=== PATIENT | male | born 1975 | race Caucasian/White ===

== ENCOUNTER → 2017-07-14 | Outpatient (CLI) | payer BC ==
--- NOTE | 2017-07-14 11:51 | DIAGNOSTIC IMAGING REPORT ---
CHEST 2 VIEWS ROUTINE HISTORY: Short of breath. ASTHMA COMPARISON: None. FINDINGS: Right infrahilar increased markings. The left lung is clear. The heart is normal in size. No pleural effusions. No pneumothorax. Mild anterior wedging within the T11 vertebral body. IMPRESSION: 1. Right infrahilar increased markings which could represent atelectasis or a small developing pneumonia. One month chest x-ray follow up is recommended to ensure stability/resolution. 2. Mild anterior wedging within the T11 vertebral body. This is likely old. Electronically signed by: Faustino Awan M.D. 07/14/2017 11:49 AM Dictated Date/Time: 07/14/2017 11:43 AM
== END | disposition home or self-care (01) ==
LOC: C.RADBC 10:51
PROVIDERS: ATTEND Physician Assistant Medical
DX: J45.901 Unspecified asthma with (acute) exacerbation (principal)

== ENCOUNTER → 2017-08-26 | Outpatient (CLI) | payer OTHER ==
--- NOTE | 2017-08-26 14:53 | DIAGNOSTIC IMAGING REPORT ---
CHEST 2 VIEWS ROUTINE HISTORY: 42 years-old Male J18.9 [id number] follow-up study in a patient with pneumonia. COMPARISON: Chest radiographs 07/14/2017 TECHNIQUE: PA and lateral views of the chest FINDINGS: There is improved aeration of the infrahilar right lung. No pneumothorax, pleural effusion, focal airspace consolidation or overt pulmonary edema identified. Cardiomediastinal and hilar silhouettes are within normal limits. The bones of the chest appear grossly intact. Likely remote anterior compression deformity of 20% in seen involving the T11 vertebral body. IMPRESSION: Improved aeration of the infrahilar right lung without acute cardiopulmonary process. The above report was generated using voice recognition software. It may contain grammatical, syntax or spelling errors. Electronically signed by: Rolly Keller M.D. 08/26/2017 2:51 PM Dictated Date/Time: 08/26/2017 2:49 PM
== END | disposition home or self-care (01) ==
LOC: C.RADBC 14:38
PROVIDERS: ATTEND Physician Assistant Medical
DX: J18.9 Pneumonia, unspecified organism (principal)

== ENCOUNTER → 2017-09-26 | Outpatient (CLI) | payer OTHER ==
--- NOTE | 2017-09-27 07:56 | PAP/PSG TECHNICIAN REPORT ---
[facility] Bottling Equipment Sales Representative Polysomnogram Report Study name: None Report date: 09/27/2017 Study date: 09/26/2017 Referring Physician: MARY CRAVEN M.D. Name: STEPHANIA RICHEY Interpreting Physician: Blas Ely M.D. Date of : 1975 Bottling Equipment Sales Representative: Jammie Mosher, PSGT. Sex: Male Age: 42 StudyType: PSG Weight: 186 lbs Height: 42 years, Height 5' 11" Neck Circum:16 inches BMI: 25.94 Medications: Azelastine, Benadryl 25 mg, Sudafed 30 mg, Triamcinolone Acetonide 40 mg, Venolin HFA 108 mcg, Zyrtec 10 mg. Patient History 42 yr. old male with asthma and allergies, presents to the sleep lab for a diagnostic sleep study for snoring and fatigue ESS = 10, Neck = 16 inches Parameters Monitored NPSG: E1-M2, E2-M1, Fp1-M2, Fp2-M1, F3-M2, F4-M2, F4-M1, C3-M2, C4-M2, C4-M1, O1-M2, O2-M2, O2-M1, T3-M2, T4-M1, P3-M2, P4-M1, CHIN1, CHIN2, HR, EKG, Legs, PFLOW, SNOR, FLOW, CFLOW, Tidal Volume, THOR, ABDO, SpO2, PLTH, CPRESS, ETCO2 Wave, ETCO2, pH Sleep Architecture Sleep Stages Time at Lights Off 9:36:51 PM STAGES Time (min.) TST (%) Time at Lights On 5:27:51 AM Wake 86.0 -- Total Recording Time (TRT) 473.00 min. N1 13.0 3 Total Sleep Period (TSP) 437.0 min. N2 276.5 72 Total Sleep Time (TST) 385.0min. N3 28.0 7 Awake Time 86.0 min. REM 67.5 18 Wake after Sleep Onset 52.0 min. Sleep Efficiency (SE) 82 % Sleep Onset Latency (HOWARD) 34.0 min. Number of Stage 1 Shifts None Awakenings 6 Stage Changes 31 Number of REM periods 2 REM 67.5 18 REM Latency 194.5 min. NREM 317.5 82 Body Position Analysis Supine Right Left Side Prone Vertical Total Sleep Time (min.) 45.7 0.0 376.2 376.19 0.0 0.0 Total Sleep Time (%) 2% 0% 98% 98 0% N/A% Total Sleep Time REM (min.) 3.2 0.0 64.3 None 0.0 0.0 Total Sleep Time NREM (min.) 5.6 0.0 311.9 None 0.0 0.0 Intermittent Wake (min.) 36.9 0.0 49.1 None 0.0 0.0 Total Sleep Period (%) 6% None None None None None Arousals Myoclonus (PLM) * Events Count Index Events Count Index Spontaneous 75 12 Events Awake (PLMW) 0 0.0 Respiratory 0 0.0 Events Asleep w/ Arousal (PLMA) 18 2.8 PLM 18 3 Events Asleep w/o Arousal (PLMS) 310 48.3 Snoring 11 2 Total Asleep 328 51.1 Total 104 16 Total 328 42 Respiratory Analysis * CA OA MA CH H RERA Total Count 0 0 0 0 1 0 1 Index 0.0 0.0 0.0 0 0.2 0 0.2 Mean Duration 0.0 0.0 0.0 0.00 11.4 0.0 11.4 Longest Duration 0.0 0.0 0.0 0.00 0.0 0.0 11.4 Respiratory Event Summary Total Supine ~Supine Right Left Prone REM NREM Apneas Count 0 0 0 N/A 0 N/A 0 0 Index 0.0 0 0 N/A 0.0 N/A 0 0 Hypopneas (4% Desat) Count 1 0 1 N/A 1 N/A 0 1 Index 0.2 0.0 0 N/A 0.2 N/A 0.0 0.2 Apneas & All Hypopneas Count 1 0 1 N/A 1 N/A 0 1 Index 0.2 0 0 N/A 0 N/A 0.0 0.2 Respiratory Events (Sheetmetal Patternmaker+All Hyp+RERA) Count 1 0 1 N/A 1 N/A 0 1 Index 0.2 0 0 N/A 0.2 N/A 0.0 0.2 Respiratory Related Arousal Count 0 0 0 N/A 0 N/A 0 0 Index 0.0 0 0 N/A 0 N/A 0 0 Snoring Analysis Supine Right Left Prone REM NREM Total Snore duration 12.6 min Snores count 19 N/A 636 N/A 44 611 655 Snore mean duration 1.2 Sec Snores index 129 N/A 101 N/A 39.1 115.5 102.1 TST with snoring (%) 3.3% Desaturation Event Summary: Minimum %SpO2 Event Count Mean/Min/Max Duration(sec.) Desaturation Index % Time In Bed > 90 8 23.7 / 10.8 / 54.0 1.7 59.7 86 - 90 3 11.6 / 5.8 / 16.0 0.9 40.3 81 - 85 0 N/A 0.0 0.0 76 - 80 0 N/A 0.0 0.0 71 - 75 0 N/A 0.0 0.0 66 - 70 0 N/A 0.0 0.0 61 - 65 0 N/A 0.0 0.0 56 - 60 0 N/A 0.0 0.0 51 - 55 0 N/A 0.0 0.0 < 50 0 N/A 0.0 0.0 Total REM NREM Awake <50% 0.0 min. 0.0 min. 0.0 min. 0.0 min. 51 - 60% 0.0 min. 0.0 min. 0.0 min. 0.0 min. 61 - 70% 0.0 min. 0.0 min. 0.0 min. 0.0 min. 71 - 80% 0.0 min. 0.0 min. 0.0 min. 0.0 min. 81 - 90% 189.5 min. 25.4 min. 129.1 min. 35.0 min. 91 - 100% 281.3 min. 42.1 min. 188.4 min. 50.9 min. Average 91 91 91 91 Minimum SpO2 87 87 87 87 Desaturation Event Index 1.4 1.8 1.7 0.0 # Desat. Events below 89% 5 1 4 N/A Time(%) with Saturation below 89% 1.2 0.5 0.3 0.4 Time(min.) with Saturation below 89% 5.6 2.3 1.3 1.9 Time (mins) REM (mins) NREM (mins) % of TST SpO2 Below 90% 11 2 N9 10.7 SpO2 Below 88% 1 0 0 0 Heart Rate Analysis Min (bpm) Max (bpm) Average (bpm) Awake 55 90 67 NREM 53 88 65 REM 52 89 64 Overall 52 89 64 Supplemental O2 Values Minimum O2 level: None Value Start Time End Time Bottling Equipment Sales Representative Comments PSG Study Mr. Richey slept in the left, and supine positions. No cardiac arrhythmia. PLM's noted. No bruxism noted. Snoring was noted and scored as a 2 on a scale of 1 through 5. (0=no snoring, 5=snoring loud enough to be heard through a closed door or down the morrow way) Mr. Richey awoke to use the restroom zero times during the night. Mr. Richey stated, I did not sleep as well as I do when I am in my own bed. The final report will be interpreted and signed by a sleep physician. The completed physician report will then be placed in the patient medical record. Therapy (cm H2O) 0 TIB (min.) 471.0 TST (min.) 385.0 Sleep Onset (min.) 34.0 REM Onset From Sleep (min.) 194.5 Sleep Efficiency % 82 Wakefulness (%) 18 Wakefulness (min.) 86.0 NREM 1 (%) 3 NREM 1 (min.) 13.0 NREM 2 (%) 72 NREM 2 (min.) 276.5 NREM 3 (%) 7 NREM 3 (min.) 28.0 REM (%) 18 REM (min.) 67.5 # Arousals 104 Arousal Index 16 # Snore 655 Snore Index 102.1 AHI 0.2 AHI Supine 0 AHI Non-Supine 0 NREM AHI 0.2 REM AHI 0.0 RDI 0.2 # Obstructive Apnea 0 # Central Apnea 0 # Mixed Apnea 0 # Hypopneas 1 RERAs 0 Total Respiratory Events 4 Time Below SpO2 89% (min.) 3.7 Mean NREM SpO2 (%) 91 Mean REM SpO2 (%) 91 Mean Sleep SpO2 (%) 91 Min NREM SpO2 (%) 87 Min REM SpO2 (%) 87 Position Supine (min.) 45.7 Position Non-supine (min.) 376.2 LM Index Sleep 51.1 LM Index NREM 59.0 LM Index REM 14.2 Mean Heart Rate (bpm) 64 Min Heart Rate (bpm) 52
--- NOTE | 2017-10-01 10:08 | POLYSOMNOGRAPH REPORT ---
CLINICAL DATA: A 42-year-old male with BMI of 25.94 referred by Ella Riojas and myself. He has asthma and allergies with snoring and fatigue. His [place] sleepiness score is 10/24. SLEEP ARCHITECTURE: Total sleep period was 437 minutes. Total sleep time was 385 minutes divided between 317.5 minutes of non-REM sleep and 67.5 minutes of REM sleep. Sleep latency was delayed at 34 minutes. REM latency was delayed at 194.5 minutes. Sleep efficiency was 82%. Wake after sleep onset was 52 minutes. Sleep consisted of stage N1 3%, stage N2 72%, stage N3 7%, and REM 18%. AROUSAL DATA: 104 arousals recorded for an index of 16 per hour. 75 were spontaneous. PLM DATA: Very frequent limb movements during sleep were noted. There were 328 limb movements during sleep noted for an index of 51 per hour with arousal index of 2.8 per hour. RESPIRATORY DATA: No significant sleep apnea was seen. The AHI was 0.2. There was 1 hypopneic episode, 11.4 seconds in duration. OXIMETRY DATA: No significant hypoxemia was seen. Oxygen kal was 87% during REM. Mean saturation was 91%. Time below 88% was 1 minute. EKG: Heart rates ranged from 52-89 beats per minute. No arrhythmias were noted. UTILIZATION MANAGER'S COMMENTS: The patient slept in the left and supine position. Snoring was mild, rated 2 on a scale of 1-5. IMPRESSION: No evidence of clinically significant sleep apnea/hypopnea or nocturnal hypoxemia. The patient did have frequent PLMs during the night. RECOMMENDATIONS: The patient will be seen back in clinic for further evaluation and recommendations. MAIDA
== END | disposition home or self-care (01) ==
LOC: C.NEUR 21:00
PROVIDERS: ATTEND Internal Medicine Pulmonary Disease
DX: G47.61 Periodic limb movement disorder (principal); J45.909 Unspecified asthma, uncomplicated; R06.83 Snoring; R40.0 Somnolence; L50.9 Urticaria, unspecified

== ENCOUNTER → 2017-10-04 | Outpatient (CLI) | payer OTHER | END | disposition home or self-care (01) | LOC: C.LAB1850 09:43 | PROVIDERS: ATTEND Internal Medicine Pulmonary Disease | DX: J45.909 Unspecified asthma, uncomplicated (principal); R06.83 Snoring; L50.9 Urticaria, unspecified; J30.9 Allergic rhinitis, unspecified; R40.0 Somnolence; G47.61 Periodic limb movement disorder ==